=== PATIENT | female | born 1990 | race Caucasian/White ===

== ENCOUNTER 2017-03-05 18:24 | Emergency (ER) | payer SELFPAY ==
[~2017-03-05] VITALS: Ht 165.1 cm; Wt 120.5 kg
[2017-03-05 18:51] LABS: ADD MIUA? YES; BILIRUBIN NEGATIVE; BLOOD SMALL; COLOR YELLOW ((YELLOW)); GLUCOSE (STRIP) NEGATIVE; KETONES NEGATIVE; LEUKOCYTES NEGATIVE; NITRITE NEGATIVE; PROTEIN (STRIP) 100; UROBILINOGEN 0.2 MG/DL (0.2-1.0)
[2017-03-05 18:53] LABS: HEMATOCRIT 40.7 % (36.0-46.0); MCH 27.3 PG (29.0-34.0); MCHC 34.2 G/DL (30.0-36.0); MCV 79.8 FL (83-99); MEAN PLAT.VOLUME 8.4 uM^3 (9.5-12.4); PLATELET COUNT 309 K/uL (156-360); RBC DIS.WIDTH-CV 12.1 % (11.8-14.6); RBC DIS.WIDTH-SD 35.1 % (39-53); WHITE BLOOD COUNT 11.2 K/uL (4.1-10.2)
[2017-03-05 19:04] LABS: CHLORIDE 107 mEq/L (99-109); POTASSIUM 4.2 mEq/L (3.7-5.4); SODIUM 142 mEq/L (136-147)
[2017-03-05 19:06] LABS: GLUCOSE 93 mg/dL (70-99)
[2017-03-05 19:08] LABS: ANION GAP 13 MEQ/L (2-14)
[2017-03-05 19:10] LABS: GFR ESTIMATE (CALCULATED) > 59 mL/min/
[2017-03-05 19:11] LABS: UREA NITROGEN (BUN) 19 mg/dL (9-23)
[2017-03-05 19:26] LABS: QUANTITATIVE HCG < 4.0 MIU/ML
[2017-03-05 19:28] LABS: BACTERIA RARE /HPF; EPITHELIAL CELLS 1+ /HPF; HYALINE CASTS 0-5 /LPF; MUCUS TRACE /LPF; RED BLOOD CELLS 0-5 /HPF (0-5); UCUL ADDED? NO; WHITE BLOOD CELLS 0-5 /HPF (0-5)
[2017-03-05 21:27] VITALS: BP 137/78
== END 2017-03-05 21:28 | disposition home or self-care (01) ==
LOC: EME 18:24
DX: R56.9 Unspecified convulsions (principal); F41.9 Anxiety disorder, unspecified; E03.9 Hypothyroidism, unspecified; S00.512A Abrasion of oral cavity, initial encounter; X58.XXXA Exposure to other specified factors, initial encounter; Z82.0 Family history of epilepsy and other diseases of the nervous system
CPT/HCPCS: 70450; 80048; 81003; 84702; 85027; 93005; 99281; 99285; J2060